=== PATIENT | male | born 1975 | race Caucasian/White ===

== ENCOUNTER 2020-08-28 10:21 | Emergency (ER) | payer OTHER ==
[~2020-08-28] VITALS: Ht 182.9 cm; Wt 88.8 kg
[2020-08-28] MEDS ORDERED: LIDOCAINE 2%/EPI 1:100,000 20 ML VIAL. IJ ONE (11:00)
[2020-08-28] MEDS ORDERED: LIDOCAINE 2% 20 ML VIAL. ONE (11:03)
[2020-08-28] MEDS ORDERED: CLINDAMYCIN HCL 150 MG CAPSULE PO ONE (11:45)
[2020-08-28] MEDS ORDERED: CLIN300C9 PO (12:08)
--- NOTE | 2020-08-28 12:08 | PHYS DOC ---
Past History Past Medical History: Diabetes Past Surgical History: No Surgical History Smoking: Cigarettes, Greater than 1 pack/day Alcohol Use: Occasionally Drug Use: None General Adult EDM: Chief Complaint: ABSCESS HPI: HPI: 45-year-old male presents with worsening upper left thoracic/ shoulder blade swelling and redness x1 week. Patient was recently seen at urgent care and started on Bactrim. Reports has 2 days left with 7-day course. Patient reports some subjective fever and chills last night. Denies known injury or puncture wound to the region. Patient recently diagnosed with diabetes and was prescribed Metformin. Patient reports he has the prescription for Metformin at home but has not yet taken it due to concern that it might impair what is currently going on with his back. Review of Systems: Review of Systems: Constitutional: Reports subjective fever/chills last night Eyes: Denies redness or eye pain HENT: Denies nasal congestion or sore throat Respiratory: Denies cough or shortness of breath Cardiovascular: Denies chest pain or palpitations GI: Denies abdominal pain, nausea, or vomiting : Denies dysuria or hematuria Musculoskeletal: Denies back pain or joint pain Integument: Reports upper thoracic swelling and redness Neurologic: Denies headache, focal weakness or sensory changes Complete systems were reviewed and found to be within normal limits, except as documented in this note. Current Medications: Current Meds: Current Medications Medications (Trade) Dose Ordered Sig/Morris Start Time Stop Time Status Last Admin Dose Admin Clindamycin HCl (Cleocin) 300 mg 1X ONCE 08/28/20 11:45 08/28/20 11:48 DC Lidocaine HCl 20 ml STK-MED ONCE 08/28/20 11:03 08/28/20 11:03 DC Lidocaine/ Epinephrine (Xylocaine 2%-Epi 1:100,000) 20 ml 1X ONCE 08/28/20 11:00 08/28/20 11:04 DC Allergies: Allergies: Allergies Coded Allergies Type Severity Reaction Last Updated Verified No Known Drug Allergies 08/28/20 No Physical Exam: PE: Constitutional: Well developed, well nourished, no acute distress, non-toxic appearance HENT: Normocephalic, atraumatic Eyes: Conjunctiva normal, no discharge Neck: Normal range of motion, supple Lungs & Thorax: No respiratory distress, equal chest rise and fall Skin: Warm, dry, large 6cm x 6cm circular swelling and erythema with central fluctuance consistent for abscess with surrounding cellulitis near left shoulder blade Back: Upper thoracic abscess and cellulitis as above, no midline tenderness Neurologic: Alert and oriented X 3, no focal deficits noted Psychologic: Affect normal, judgment normal Current Patient Data: Vital Signs: Vital Signs Date Time Temp Pulse Resp B/P (MAP) Pulse Ox O2 Delivery O2 Flow Rate FiO2 08/28/20 10:30 98.3 106 16 151/87 (108) 98 Room Air EKG: EKG: [] Radiology/Procedures: Radiology/Procedures: [] Heart Score: C/O Chest Pain: N/A Course & Med Decision Making: Course & Med Decision Making Pertinent Lab studies reviewed. (See chart for details) Patient presents with HPI and physical exam consistent for large upper back abscess. I&D performed. Empiric antibiotic initiated. Patient with history of recently diagnosed diabetes for which he has not started his diabetic medication. Patient does have a prescription for Metformin which she has not started. Accu-Chek elevated. Patient advised to start his Metformin at home. And to start new antibiotic regimen. Patient advised to remove packing after 24 hours. Patient stable for discharge with outpatient follow-up with PCP. Discussed findings and plan with patient, who acknowledges understanding and agreement. Margo Disclaimer: Margo Disclaimer: This electronic medical record was generated, in whole or in part, using a voice recognition dictation system. Incision and Drainage Incision and Drainage : Blade Size: 11 I & D Procedure: sterile dressing applied, gauze wick placed Progress Verbal consent obtained. Time out performed. Hand hygiene utilized. Wound cleaned with ChloraPrep. Anesthesia obtained via a 25-gauge hypodermic needle with 5 mL's of lidocaine 2% with epinephrine. Abscess was incised 1.5cm with an 11 blade scalpel. Purulent material was expressed spontaneously and with digital pressure on the edges of the abscess. Loculations were broken up using curved pedrito clamp. The abscess was then irrigated with 200cc's of normal saline. The wound was then packed with 1" sterile gauze and a tail was left to allow for easy removal of packing material. Patient tolerated procedure well and without difficulty. Empiric antibiotic ointment applied prior to sterile dressing. Departure Departure: Impression: Primary Impression: Abscess Disposition: 01 DC HOME SELF CARE/HOMELESS Condition: STABLE Referrals: HELENA STOUT MD (PCP) Patient Instructions: Abscess, Care After Additional Instructions: Please start your previously prescribed diabetes medications Scripts Clindamycin Hcl (CLINDAMYCIN HCL) 300 Mg Capsule 1 CAP PO TID for infection, #30 CAP Prov: NILES BLUE DO 08/28/20 NILES BLUE DO Aug 28, 2020 12:08
[2020-08-28 12:28] VITALS: BP 142/70
== END 2020-08-28 12:25 | disposition home or self-care (01) ==
LOC: ER 10:21
DX: L02.414 Cutaneous abscess of left upper limb (principal); R50.9 Fever, unspecified; R60.0 Localized edema; E11.9 Type 2 diabetes mellitus without complications; F17.210 Nicotine dependence, cigarettes, uncomplicated
CPT/HCPCS: 10061; 82947; 99284